=== PATIENT | female | born 2000 | race Asian ===

== ENCOUNTER 2021-07-10 10:14 | Emergency (ER) | payer BC ==
[~2021-07-10] VITALS: Ht 177.8 cm; Wt 59.1 kg
[2021-07-10 10:51] VITALS: BP 112/72; TEMP 98.6
[2021-07-10 11:38] LABS: COLLECTION METHOD CLEAN CATCH
[2021-07-10 11:50] LABS: AMORPHOUS CRYSTAL Present (NOT PRESENT); MUCOUS Present (NOT PRESENT); PH 5 (5-8); SQUAMOUS EPITHELIAL 0-2 /hpf (0-10); URINE APPEARANCE Cloudy (CLEAR/HAZY); URINE BACTERIA Rare /hpf (NONE SEEN); URINE BILIRUBIN Negative (NEGATIVE); URINE BLOOD 1+ (NEGATIVE); URINE COLOR Yellow (YELLOW); URINE GLUCOSE Negative (NEGATIVE); URINE KETONE 2+ (NEGATIVE); URINE LEUKOCYTE ESTERASE Negative (NEGATIVE); URINE NITRATE Negative (NEGATIVE); URINE PROTEIN(semi-quant) 1+ (NEGATIVE); URINE RBC 20-50 /hpf (0-2); URINE UROBILINOGEN Negative (NEGATIVE)
[2021-07-10] MEDS ORDERED: ZOFRAN ODT4 MG PO (12:08)
[2021-07-10 12:26] VITALS: PULSE 87
== END 2021-07-10 12:26 | disposition home or self-care (01) ==
LOC: COL.ER 10:14
PROVIDERS: Emergency Medicine
DX: U07.1 COVID-19 (principal)
CPT/HCPCS: J2405; J7030

== ENCOUNTER 2021-07-19 16:14 | Emergency (ER) | payer BC ==
[~2021-07-19 16:14] MED LIST: ZOFRAN ODT4 MG PO
== END 2021-07-19 16:24 | disposition left against medical advice (07) ==
LOC: COL.ER 16:14
DX: R69 Illness, unspecified (principal)